=== PATIENT | female | born 1995 | race Caucasian/White ===

== ENCOUNTER 2016-05-25 21:12 | Emergency (ER) | payer BC ==
[~2016-05-25] VITALS: Ht 157.5 cm; Wt 51.4 kg
[2016-05-25 21:23] VITALS: TEMP 36.8; Ht 157.5 cm; Wt 51.4 kg
[2016-05-25 22:00] LABS: BASO % 0.1 %; BASO ABS # 0.01 K/uL (0-0.2); COMPLETE YES; EOS % 0.4 %; HEMATOCRIT 39.4 % (37-47); IG% 0.3 %; LYMPH % 27.9 %; LYMPH ABS # 2.03 K/uL (1.2-3.4); MEAN CELL VOLUME 80.7 fL (80-100); MEAN CORPUSCULAR HEMOGLOBIN 26.6 pg (25-34); MEAN PLATELET VOLUME 10.2 fL (7.4-10.4); MONO % 4.3 %; PLATELET COUNT 234 K/uL (130-400); RED BLOOD COUNT 4.88 M/uL (4.2-5.4); WHITE BLOOD COUNT 7.28 K/uL (4.8-10.8)
[2016-05-25 22:21] LABS: BUN/CREATININE RATIO 11.2 (10-20); CALCIUM 9.4 mg/dl (8.5-10.1); CREATININE 0.75 mg/dl (0.60-1.20); POTASSIUM 4.1 mmol/L (3.5-5.1)
[2016-05-25] MEDS ORDERED: CALC500C3 PO (22:41)
[2016-05-25] MEDS ORDERED: AMPH30CA3 PO (22:41)
[2016-05-25] MEDS ORDERED: BCPILLS PO (22:41)
[2016-05-25] MEDS ORDERED: ONDANSETRON INJ 2 MG/ML 2 ML VIAL IV STA (23:02)
[2016-05-25] MEDS ORDERED: MoRPHine SULFATE 4 MG/ML 1 ML CARP\\VIAL IV STA (23:02)
[2016-05-25] MEDS: SODIUM CHLORIDE 0.9% 500ML 500 ML IV STA ×2 (23:31→23:52)
[2016-05-26 00:41] VITALS: BP 120/78; PULSE 81; O2SAT 99
[2016-05-26 00:57] LABS: URINE APPEARANCE CLEAR (CLEAR); URINE BILIRUBIN NEG (NEG); URINE COLOR YELLOW; URINE NITRITE NEG (NEG); URINE PH 7.5 (4.5-7.5); UROBILINOGEN NEG (NEG); ZZUR CULT IF INDIC CLEAN CATCH NO
[2016-05-26 00:59] LABS: MANUAL MICROSCOPIC REQUIRED? NO; REVIEW REQ? NO
--- NOTE | 2016-05-28 16:17 | EMERGENCY ROOM VISIT NOTE ---
ED Visit Note First contact with patient: 22:26 Chief Complaint: Abdominal pain History of Present Illness: Ms. Bojorquez is a 21 year-old white female complaining of epigastric abdominal pain. Historically patient reports no significant past gastrointestinal medical history and has had no abdominal surgeries. Patient reports acute onset of epigastric abdominal pain that started approximately 3 hours ago. Since that time the pain has been constant. The pain is currently described as cramping. The pain is radiating initially into the medial border of the right upper quadrant and over the last hour that has resolved and is now radiating to the mid left upper quadrant. She has not identified any aggravating or alleviating factors related to the pain. She rates discomfort 7/10. She has not taken a medications for pain prior to arrival at the hospital. Associated with the pain there has been nausea without vomiting. Patient denies fevers, chills, sweats, skin eruptions, skin color changes, upper respiratory tract symptoms, shortness of breath, chest pain, diarrhea, constipation, rectal bleeding, black/tarry stools, urinary symptoms, hematuria, vaginal bleeding, vaginal discharge, back/flank pain. Review of Systems: As noted above in history of present illness. All body systems were reviewed and found to be negative as noted above. Past Medical History: Bronchitis, pneumonia, status post tonsillectomy, adenoidectomy and wisdom teeth extraction. Current Medications: Adderall, calcium carbonate, control. Allergies to Medications: Zithromax, erythromycin, Biaxin. Social History: Patient is currently University student; she feels safe in her home environment; she denies tobacco use and admits to alcohol use. Physical Examination: Vital Signs: Date Time Temp Pulse Resp B/P Pulse Ox O2 Delivery O2 Flow Rate FiO2 05/26/16 00:41 81 18 120/78 99 05/25/16 23:51 98 18 120/87 99 Room Air 05/25/16 21:23 36.8 97 20 124/86 98 Room Air GENERAL: 21-year-old female in mild distress due to pain, nontoxic-appearing, afebrile and hemodynamically stable. NEUROLOGICAL: Awake, alert and oriented to person, place and time. Answering questions appropriately and following commands. Normal gait. Good hand eye coordination. SKIN: Warm, dry and pink. No soft tissue eruptions or trauma noted. HEENT: Atraumatic and normocephalic. PERRLA. Sclera white and conjunctiva pink. Oral cavity moist and pink. Pharynx is nonerythematous or edematous. Speech normal. No lymphadenopathy. Trachea midline. No jugular venous distention. BACK: No tenderness over the bony spine. No CVA tenderness. THORAX: Lungs sounds are clear to auscultation and equal bilaterally with symmetrical chest wall. No wheezing, rales or rhonchi. No crepitus, tenderness , subcutaneous air or deformities noted. HEART: Regular rate and rhythm. No gallops, rubs or murmurs are appreciated. ABDOMEN: Flat and soft with mild tenderness in the epigastrium. Positive bowel sounds in all quadrants. No guarding, rigidity or organomegaly. EXTREMITIES: Moves all extremities well on command and with purpose. All distal neurovascular statuses are intact and equal bilaterally. ED Course: Patient is assessed as noted above. Laboratory Testing: Test 05/25/16 21:48 05/25/16 23:50 Range/Units White Blood Count 7.28 4.8-10.8 K/uL Red Blood Count 4.88 4.2-5.4 M/uL Hemoglobin 13.0 12.0-16.0 g/dL Hematocrit 39.4 37-47 % Mean Corpuscular Volume 80.7 80-100 fL Mean Corpuscular Hemoglobin 26.6 25-34 pg Mean Corpuscular Hemoglobin Concent 33.0 32-36 g/dl Platelet Count 234 130-400 K/uL Mean Platelet Volume 10.2 7.4-10.4 fL Neutrophils (%) (Auto) 67.0 % Lymphocytes (%) (Auto) 27.9 % Monocytes (%) (Auto) 4.3 % Eosinophils (%) (Auto) 0.4 % Basophils (%) (Auto) 0.1 % Neutrophils # (Auto) 4.88 1.4-6.5 K/uL Lymphocytes # (Auto) 2.03 1.2-3.4 K/uL Monocytes # (Auto) 0.31 0.11-0.59 K/uL Eosinophils # (Auto) 0.03 0-0.5 K/uL Basophils # (Auto) 0.01 0-0.2 K/uL RDW Standard Deviation 41.0 36.4-46.3 fL RDW Coefficient of Variation 13.9 11.5-14.5 % Immature Granulocyte % (Auto) 0.3 % Immature Granulocyte # (Auto) 0.02 0.00-0.02 K/uL Sodium Level 140 136-145 mmol/L Potassium Level 4.1 3.5-5.1 mmol/L Chloride Level 103 98-107 mmol/L Carbon Dioxide Level 26 21-32 mmol/L Anion Gap 11.0 3-11 mmol/L Blood Urea Nitrogen 8 7-18 mg/dl Creatinine 0.75 0.60-1.20 mg/dl Est Creatinine Clear Calc Drug Dose 93.9 ml/min Estimated GFR () 132.1 Estimated GFR (Non- 113.9 BUN/Creatinine Ratio 11.2 10-20 Random Glucose 99 70-99 mg/dl Calcium Level 9.4 8.5-10.1 mg/dl Total Bilirubin 0.5 0.2-1 mg/dl Aspartate Amino Transf (AST/SGOT) 17 15-37 U/L Alanine Aminotransferase (ALT/SGPT) 18 12-78 U/L Alkaline Phosphatase 49 45-117 U/L Total Protein 7.9 6.4-8.2 gm/dl Albumin 3.9 3.4-5.0 gm/dl Globulin 4.0 2.5-4.0 gm/dl Albumin/Globulin Ratio 1.0 0.9-2 Lipase 139 73-393 U/L Urine Color YELLOW Urine Appearance CLEAR CLEAR Urine pH 7.5 4.5-7.5 Urine Specific Pavilion 1.010 1.000-1.030 Urine Protein NEG NEG Urine Glucose (UA) NEG NEG Urine Ketones NEG NEG Urine Occult Blood NEG NEG Urine Nitrite NEG NEG Urine Bilirubin NEG NEG Urine Urobilinogen NEG NEG Urine Leukocyte Esterase NEG NEG Urine Test NEG NEG Patient was hydrated with normal saline, she received 4 mg of morphine IV for pain and 4 mg of Zofran IV for nausea. Patient was reassessed multiple times during her stay in the emergency department. Patient's case was reviewed with Dr. Briggs; agreed on diagnostic approach, treatment, disposition and plan. Patient was educated about tonight's findings and instructed on her treatment plan; she verbalizes understanding and agreement with this plan. Clinical Impression: Epigastric abdominal pain. Decision-Making: Gastritis, esophageal reflux, pancreatitis, hepatitis, pneumonia, pulmonary embolism, acute coronary syndrome, cholecystitis and other causes. Disposition: Patient discharged home in stable condition accompanied by friends ; prior to departure she was reassessed and subjectively reported she was feeling much better and rated her discomfort 05/10. Plan: Patient was encouraged to use 650 mg of acetaminophen every 6 hours as needed for pain. Patient was encouraged to bland diet and stay well hydrated. Patient was encouraged to avoid stomach irritants. Patient was encouraged to consider using Zantac. [facility] follow[facility] at [facility] for recheck in 2-3 days. Patient was encouraged return the ED for worsening/pain, fevers, vomiting, bloody stools or any new/concerning symptoms. Patient was encouraged to follow-up with personal physician for recheck in 1-2 days. Patient was encouraged return the ED for worsening symptoms, fevers, or any new/ concerning symptoms.
== END 2016-05-26 00:41 | disposition home or self-care (01) ==
LOC: C.EDB 21:13 → C.EDA 05-26 00:41
DX: R10.13 Epigastric pain (principal); Z87.01 Personal history of pneumonia (recurrent); Z90.89 Acquired absence of other organs; Z98.818 Other dental procedure status; Z79.3 Long term (current) use of hormonal contraceptives